=== PATIENT | male | born 1980 | race Caucasian/White ===

== ENCOUNTER 2016-04-24 13:40 | Outpatient (CLI) | payer BC ==
[~2016-04-24] VITALS: Ht 182.9 cm; Wt 111.4 kg
[~2016-04-24 13:40] MED LIST: ACIDOPHILUS PO; ALLEGRA ALLERGY60 MG PO; ALLEGRA30 MG PO; ASACOL HD800 MG PO; ASACOL PO; ASACOL400 MG PO; CANASA1000 MG RC; CANASA500 MG RC; DILAUDID 4MG TAB4 MG PO; DUO-KAPS1 CAP PO; FLAGYL500 MG PO; HYDROCORTI100 MG/60 RC; HYDROCORTISONE SUPP; IMODIUM 2MG CAPS2 MG PO; IMURAN 50MG TAB50 MG PO; IMURAN100 MG IV; LEVAQUIN 250MG250 MG PO; LEVSIN0.125 M1 PO; LIALDA 1.2 GM1.2 GM PO; METRONIDAZOLE; NORCO 325 MG-51 TAB PO; PREDNISONE20 MG; PREDNISONE20 MG PO; PROBIOTIC FORMU1 CAP PO; ROWASA ENEMA60 ML RC; SIMETHICONE PO; TYLENOL EXTRA500 M1 PO; ZANTAC 150MG T150 MG PO; ZOFRAN 4MG T4 MG/TAB PO; ZOLOFT 100MG100 MG PO; ZOLOFT 25MG25 MG PO; [UNRECOGNIZED DRUG - OTHER] RC
[2016-04-24 15:33] LABS: ALBUMIN 4.1 gm/dL (3.5-5.0); BILIRUBIN,DIRECT 0.4 mg/dL (0.0-0.4); BILIRUBIN,TOTAL 0.5 mg/dL (0.0-1.0); TOTAL PROTEIN 7.6 gm/dL (6.4-8.2)
[2016-04-24 15:51] LABS: HEMOGLOBIN 13.3 g/dl (13.5-18.0); MEAN CELL VOLUME 86 fl (80.0-100.0); MEAN CORPUSCULAR HEMOGLOBIN 29 pg (27.0-31.0); MEAN CORPUSCULAR HGB CONC 34 g/dl (33.0-37.0); MEAN PLATELET VOLUME 9.6 fl (7.4-10.4); PLATELET COUNT 198 K/mm3 (130-400); RED BLOOD COUNT 4.55 M/mm3 (4.20-5.60); REDCELL DISTRIBUTION WIDTH-CV 13.3 % (11.5-14.5); WHITE BLOOD COUNT 4.8 K/mm3 (4.8-10.8)
[2016-04-24 16:15] VITALS: BP 119/72; PULSE 81; TEMP 97.8
[2016-04-24 16:25] VITALS: BP 119/72; PULSE 81; TEMP 97.8
[2016-04-24 16:55] VITALS: BP 120/71; PULSE 88
[2016-04-24 17:25] VITALS: BP 130/75; PULSE 89
[2016-04-24 17:55] VITALS: BP 134/74; PULSE 90
[2016-04-24 18:25] VITALS: BP 133/80; PULSE 90
== END 2016-04-24 18:30 | disposition home or self-care (01) ==
LOC: EUO 13:40
PROVIDERS: Internal Medicine Gastroenterology
DX: K51.80 Other ulcerative colitis without complications (principal)
CPT/HCPCS: J1200; J1745; J7050

== ENCOUNTER → 2016-06-27 | Outpatient (CLI) | payer BC ==
[~2016-06-27] VITALS: Ht 182.9 cm; Wt 111.3 kg
[~2016-06-27] MED LIST changes: +ALLEGRA 180MG180 MG PO
[2016-06-27 14:26] LABS: HEMATOCRIT 39.1 % (42.0-52.0); HEMOGLOBIN 13.3 g/dl (13.5-18.0); MEAN CELL VOLUME 87 fl (80.0-100.0); MEAN CORPUSCULAR HEMOGLOBIN 30 pg (27.0-31.0); MEAN CORPUSCULAR HGB CONC 34 g/dl (33.0-37.0); MEAN PLATELET VOLUME 9.9 fl (7.4-10.4); PLATELET COUNT 146 K/mm3 (130-400); RED BLOOD COUNT 4.49 M/mm3 (4.20-5.60)
[2016-06-27 14:35] LABS: BILIRUBIN,DIRECT 0.6 mg/dL (0.0-0.4); BILIRUBIN,TOTAL 0.7 mg/dL (0.0-1.0); TOTAL PROTEIN 7.4 gm/dL (6.4-8.2)
[2016-06-27 14:43] LABS: ALBUMIN 4.2 gm/dL (3.5-5.0)
[2016-06-27 15:13] VITALS: BP 129/76; PULSE 90; TEMP 98.4
[2016-06-27 15:45] VITALS: BP 113/62; PULSE 74; TEMP 98.2
[2016-06-27 16:30] VITALS: BP 117/71; PULSE 90; TEMP 97.6
[2016-06-27 17:00] VITALS: BP 107/76; PULSE 81; TEMP 98.4
[2016-06-27 17:23] VITALS: BP 115/70; PULSE 80; TEMP 98
== END ==
LOC: EUO 06-26 14:00
PROVIDERS: Internal Medicine Gastroenterology
DX: K51.80 Other ulcerative colitis without complications (principal)
CPT/HCPCS: J1200; J7050

== ENCOUNTER 2016-08-23 13:57 | Outpatient (CLI) | payer BC ==
[~2016-08-23] VITALS: Ht 182.9 cm; Wt 111.5 kg
[~2016-08-23 13:57] MED LIST changes: -ALLEGRA 180MG180 MG PO
[2016-08-23] MEDS ORDERED: ALLEGRA 180MG180 MG PO (14:34)
[2016-08-23 14:39] LABS: HEMATOCRIT 38.3 % (42.0-52.0); HEMOGLOBIN 13.4 g/dl (13.5-18.0); MEAN CELL VOLUME 85 fl (80.0-100.0); MEAN CORPUSCULAR HEMOGLOBIN 30 pg (27.0-31.0); MEAN CORPUSCULAR HGB CONC 35 g/dl (33.0-37.0); MEAN PLATELET VOLUME 9.7 fl (7.4-10.4); PLATELET COUNT 166 K/mm3 (130-400); RED BLOOD COUNT 4.52 M/mm3 (4.20-5.60); REDCELL DISTRIBUTION WIDTH-CV 13.4 % (11.5-14.5); WHITE BLOOD COUNT 4.4 K/mm3 (4.8-10.8)
[2016-08-23 14:43] LABS: ALBUMIN 3.8 gm/dL (3.5-5.0); BILIRUBIN,DIRECT 0.6 mg/dL (0.0-0.4); BILIRUBIN,TOTAL 0.7 mg/dL (0.0-1.0); TOTAL PROTEIN 7.2 gm/dL (6.4-8.2)
[2016-08-23 15:40] VITALS: BP 127/75; PULSE 96; TEMP 98.1
[2016-08-23 16:10] VITALS: BP 118/67; PULSE 96; TEMP 98.7
[2016-08-23 16:45] VITALS: BP 116/72; PULSE 90; TEMP 98.4
[2016-08-23 17:15] VITALS: BP 120/70; PULSE 93; TEMP 98.4
[2016-08-23 17:43] VITALS: BP 124/63; PULSE 89; TEMP 98
== END 2016-08-23 17:43 | disposition home or self-care (01) ==
LOC: EUO 13:57
PROVIDERS: Internal Medicine Gastroenterology
DX: K51.80 Other ulcerative colitis without complications (principal); Z79.899 Other long term (current) drug therapy
CPT/HCPCS: J1200; J1745; J7050

== ENCOUNTER 2016-10-22 14:14 | Outpatient (CLI) | payer BC ==
[~2016-10-22] VITALS: Ht 182.9 cm; Wt 112.0 kg
[~2016-10-22 14:14] MED LIST changes: +ALLEGRA 180MG180 MG PO
[2016-10-22 15:11] LABS: HEMATOCRIT 41.1 % (42.0-52.0); HEMOGLOBIN 14.1 g/dl (13.5-18.0); MEAN CELL VOLUME 86 fl (80.0-100.0); MEAN CORPUSCULAR HEMOGLOBIN 29 pg (27.0-31.0); MEAN CORPUSCULAR HGB CONC 34 g/dl (33.0-37.0); MEAN PLATELET VOLUME 9.8 fl (7.4-10.4); PLATELET COUNT 178 K/mm3 (130-400); REDCELL DISTRIBUTION WIDTH-CV 13.5 % (11.5-14.5); WHITE BLOOD COUNT 5.3 K/mm3 (4.8-10.8)
[2016-10-22 15:23] LABS: ALBUMIN 4.4 gm/dL (3.5-5.0); BILIRUBIN,TOTAL 0.6 mg/dL (0.0-1.0); TOTAL PROTEIN 7.8 gm/dL (6.4-8.2)
[2016-10-22 15:36] LABS: BILIRUBIN,DIRECT 0.5 mg/dL (0.0-0.4)
[2016-10-22 16:11] VITALS: BP 128/74; PULSE 92; TEMP 98.8
[2016-10-22 16:40] VITALS: BP 116/63; PULSE 88; TEMP 97.8
[2016-10-22 17:16] VITALS: BP 126/69; PULSE 97; TEMP 98.5
[2016-10-22 17:50] VITALS: BP 123/64; PULSE 91; TEMP 98.3
[2016-10-22 18:21] VITALS: BP 113/60; PULSE 87; TEMP 98.6
== END 2016-10-22 18:21 | disposition critical access hospital, planned readmission (94) ==
LOC: EUO 14:14
PROVIDERS: Internal Medicine Gastroenterology
DX: K51.80 Other ulcerative colitis without complications (principal); Z79.899 Other long term (current) drug therapy
CPT/HCPCS: J1200; J7050; Q5102-ZB

== ENCOUNTER 2016-12-19 14:07 | Outpatient (CLI) | payer BC ==
[~2016-12-19] VITALS: Ht 182.9 cm; Wt 109.0 kg
[2016-12-19 14:45] LABS: HEMATOCRIT 42.7 % (42.0-52.0); HEMOGLOBIN 14.2 g/dl (13.5-18.0); MEAN CELL VOLUME 89 fl (80.0-100.0); MEAN CORPUSCULAR HEMOGLOBIN 30 pg (27.0-31.0); MEAN CORPUSCULAR HGB CONC 33 g/dl (33.0-37.0); MEAN PLATELET VOLUME 9.4 fl (7.4-10.4); PLATELET COUNT 172 K/mm3 (130-400); REDCELL DISTRIBUTION WIDTH-CV 13.7 % (11.5-14.5); WHITE BLOOD COUNT 5.7 K/mm3 (4.8-10.8)
[2016-12-19 15:35] VITALS: BP 130/71; PULSE 68; TEMP 98.5
[2016-12-19 16:05] VITALS: BP 131/75; PULSE 75; TEMP 98.4
[2016-12-19 16:35] VITALS: BP 130/65; PULSE 74; TEMP 98.4
[2016-12-19 17:00] VITALS: BP 131/74; PULSE 88; TEMP 98.5
[2016-12-19 17:39] VITALS: BP 127/69; PULSE 88; TEMP 98.4
== END 2016-12-19 17:39 | disposition home or self-care (01) ==
LOC: EUO 14:07
PROVIDERS: Internal Medicine Gastroenterology
DX: K51.80 Other ulcerative colitis without complications (principal); Z79.899 Other long term (current) drug therapy
CPT/HCPCS: J1200; J1745; J7050

== ENCOUNTER 2017-02-14 14:06 | Outpatient (CLI) | payer BC ==
[~2017-02-14] VITALS: Ht 182.9 cm; Wt 108.0 kg
[2017-02-14 14:51] LABS: HEMATOCRIT 46.4 % (42.0-52.0); HEMOGLOBIN 15.9 g/dl (13.5-18.0); MEAN CELL VOLUME 85 fl (80.0-100.0); MEAN CORPUSCULAR HEMOGLOBIN 29 pg (27.0-31.0); MEAN CORPUSCULAR HGB CONC 34 g/dl (33.0-37.0); MEAN PLATELET VOLUME 10.2 fl (7.4-10.4); PLATELET COUNT 158 K/mm3 (130-400); RED BLOOD COUNT 5.46 M/mm3 (4.20-5.60); WHITE BLOOD COUNT 6.1 K/mm3 (4.8-10.8)
[2017-02-14 15:01] VITALS: BP 120/64; PULSE 92; TEMP 98
[2017-02-14 15:05] LABS: ALBUMIN 4.8 gm/dL (3.5-5.0); TOTAL PROTEIN 8.4 gm/dL (6.4-8.2)
[2017-02-14 15:32] LABS: BILIRUBIN UNCONJUGATED 0.2 mg/dL (0.0-1.1); BILIRUBIN,DIRECT 0.4 mg/dL (0.0-0.4); BILIRUBIN,TOTAL 0.6 mg/dL (0.0-1.0)
[2017-02-14 16:00] VITALS: BP 119/69; PULSE 77; TEMP 98.4
[2017-02-14 16:30] VITALS: BP 120/65; PULSE 82; TEMP 98.5
[2017-02-14 17:00] VITALS: BP 123/73; PULSE 94
[2017-02-14 17:30] VITALS: BP 129/75; PULSE 90; TEMP 98.6
[2017-02-14 18:10] VITALS: BP 122/70; PULSE 89; TEMP 98.6
== END 2017-02-14 18:28 | disposition home or self-care (01) ==
LOC: EUO 14:06
PROVIDERS: Internal Medicine Gastroenterology
DX: K51.80 Other ulcerative colitis without complications (principal); Z79.899 Other long term (current) drug therapy
CPT/HCPCS: J1200; J1745; J7050

== ENCOUNTER 2017-04-11 13:52 | Outpatient (CLI) | payer BC ==
[~2017-04-11] VITALS: Ht 182.9 cm; Wt 108.4 kg
[2017-04-11 14:28] LABS: HEMOGLOBIN 15.6 g/dl (13.5-18.0); MEAN CELL VOLUME 85 fl (80.0-100.0); MEAN CORPUSCULAR HEMOGLOBIN 29 pg (27.0-31.0); MEAN CORPUSCULAR HGB CONC 34 g/dl (33.0-37.0); MEAN PLATELET VOLUME 9.7 fl (7.4-10.4); PLATELET COUNT 192 K/mm3 (130-400); RED BLOOD COUNT 5.42 M/mm3 (4.20-5.60)
[2017-04-11 14:36] LABS: ALBUMIN 4.4 gm/dL (3.5-5.0); BILIRUBIN UNCONJUGATED 0.2 mg/dL (0.0-1.1); BILIRUBIN,DIRECT 0.2 mg/dL (0.0-0.4); BILIRUBIN,TOTAL 0.5 mg/dL (0.0-1.0); TOTAL PROTEIN 8.2 gm/dL (6.4-8.2)
[2017-04-11 16:00] VITALS: BP 128/74; PULSE 82; TEMP 98
[2017-04-11 16:30] VITALS: BP 121/69; PULSE 77; TEMP 98.2
[2017-04-11 17:00] VITALS: BP 133/64; PULSE 85; TEMP 98
[2017-04-11 17:30] VITALS: BP 109/61; PULSE 94; TEMP 98
[2017-04-11 18:00] VITALS: BP 123/76; PULSE 87; TEMP 98.2
[2017-04-11 18:25] VITALS: BP 122/60; PULSE 76; TEMP 98.4
== END 2017-04-11 18:46 | disposition home or self-care (01) ==
LOC: EUO 13:52
PROVIDERS: Internal Medicine Gastroenterology
DX: K51.80 Other ulcerative colitis without complications (principal); Z79.899 Other long term (current) drug therapy
CPT/HCPCS: J1200; J7050

== ENCOUNTER 2017-06-11 14:38 | Outpatient (CLI) | payer BC ==
[~2017-06-11] VITALS: Ht 182.9 cm; Wt 110.7 kg
[2017-06-11 15:08] LABS: HEMATOCRIT 45.4 % (42.0-52.0); HEMOGLOBIN 15.9 g/dl (13.5-18.0); MEAN CELL VOLUME 85 fl (80.0-100.0); MEAN CORPUSCULAR HEMOGLOBIN 30 pg (27.0-31.0); MEAN CORPUSCULAR HGB CONC 35 g/dl (33.0-37.0); MEAN PLATELET VOLUME 9.5 fl (7.4-10.4); PLATELET COUNT 203 K/mm3 (130-400); RED BLOOD COUNT 5.35 M/mm3 (4.20-5.60); REDCELL DISTRIBUTION WIDTH-CV 14.1 % (11.5-14.5)
[2017-06-11 15:12] LABS: ALBUMIN 4.5 gm/dL (3.5-5.0); BILIRUBIN UNCONJUGATED 0.2 mg/dL (0.0-1.1); BILIRUBIN,DIRECT 0.2 mg/dL (0.0-0.4); BILIRUBIN,TOTAL 0.5 mg/dL (0.0-1.0); TOTAL PROTEIN 8.8 gm/dL (6.4-8.2)
[2017-06-11 16:35] VITALS: BP 123/76; PULSE 91; TEMP 98.6
[2017-06-11 17:00] VITALS: BP 106/72; PULSE 96; TEMP 98.1
[2017-06-11 17:30] VITALS: BP 123/76; PULSE 101; TEMP 98.3
[2017-06-11 18:00] VITALS: BP 104/75; PULSE 92; TEMP 98.3
[2017-06-11 18:25] VITALS: BP 111/63; PULSE 76
[2017-06-11 18:38] VITALS: BP 111/68; PULSE 76; TEMP 97.8
== END 2017-06-11 18:41 | disposition home or self-care (01) ==
LOC: EUO 14:38
PROVIDERS: Internal Medicine Gastroenterology
DX: K51.80 Other ulcerative colitis without complications (principal); Z79.899 Other long term (current) drug therapy
CPT/HCPCS: J1200; J1745; J7050

== ENCOUNTER 2017-08-06 13:38 | Outpatient (CLI) | payer BC ==
[~2017-08-06] VITALS: Ht 182.9 cm; Wt 120.5 kg
[2017-08-06 14:00] VITALS: BP 130/88; PULSE 99; TEMP 97.9
[2017-08-06 14:06] LABS: HEMATOCRIT 41.2 % (42.0-52.0); HEMOGLOBIN 14.5 g/dl (13.5-18.0); MEAN CELL VOLUME 86 fl (80.0-100.0); MEAN CORPUSCULAR HEMOGLOBIN 30 pg (27.0-31.0); MEAN CORPUSCULAR HGB CONC 35 g/dl (33.0-37.0); MEAN PLATELET VOLUME 9.9 fl (7.4-10.4); PLATELET COUNT 191 K/mm3 (130-400); RED BLOOD COUNT 4.78 M/mm3 (4.20-5.60); REDCELL DISTRIBUTION WIDTH-CV 13.2 % (11.5-14.5)
== END 2017-08-06 15:00 | disposition home or self-care (01) ==
LOC: EUO 13:38
PROVIDERS: Internal Medicine Gastroenterology
DX: K51.80 Other ulcerative colitis without complications (principal); Z79.899 Other long term (current) drug therapy
CPT/HCPCS: J1200; J1745; J7050

== ENCOUNTER 2017-10-01 14:25 | Outpatient (CLI) | payer BC ==
[~2017-10-01] VITALS: Ht 182.9 cm; Wt 113.0 kg
[2017-10-01] MEDS ORDERED: ZYRTEC 10MG10 MG PO (14:57)
[2017-10-01 15:36] LABS: BASO % 0.4 % (0.0-2.0); EOS # 0.1 (0.0-0.7); GRAN # 3.3 (1.4-6.5); GRAN % 67.6 % (42.2-75.2); HEMATOCRIT 39.8 % (42.0-52.0); HEMOGLOBIN 13.8 g/dl (13.5-18.0); LYMPH % 20.7 % (20.0-51.0); MEAN CELL VOLUME 86 fl (80.0-100.0); MEAN CORPUSCULAR HEMOGLOBIN 30 pg (27.0-31.0); MEAN CORPUSCULAR HGB CONC 35 g/dl (33.0-37.0); MEAN PLATELET VOLUME 9.2 fl (7.4-10.4); MONO # 0.4 (0.1-0.6); MONO % 8.9 % (1.7-9.3); PLATELET COUNT 181 K/mm3 (130-400); RED BLOOD COUNT 4.62 M/mm3 (4.20-5.60); REDCELL DISTRIBUTION WIDTH-CV 13.1 % (11.5-14.5)
[2017-10-01 15:42] LABS: TOTAL PROTEIN 7.6 gm/dL (6.4-8.2)
[2017-10-01 15:49] LABS: BILIRUBIN UNCONJUGATED 0.1 mg/dL (0.0-1.1); BILIRUBIN,DIRECT 0.2 mg/dL (0.0-0.4); BILIRUBIN,TOTAL 0.3 mg/dL (0.0-1.0)
[2017-10-01 16:50] VITALS: BP 133/90; PULSE 95; TEMP 98.3
[2017-10-01 17:42] VITALS: BP 140/96; PULSE 87; TEMP 98.2
== END 2017-10-01 18:50 | disposition home or self-care (01) ==
LOC: EUO 14:25
PROVIDERS: Internal Medicine Gastroenterology
DX: K51.80 Other ulcerative colitis without complications (principal); Z79.899 Other long term (current) drug therapy
CPT/HCPCS: J1200; J7050

== ENCOUNTER 2017-11-26 14:14 | Outpatient (CLI) | payer BC ==
[~2017-11-26] VITALS: Ht 182.9 cm; Wt 112.4 kg
[~2017-11-26 14:14] MED LIST changes: +ZYRTEC 10MG10 MG PO
[2017-11-26 14:50] LABS: HEMATOCRIT 40.4 % (42.0-52.0); HEMOGLOBIN 13.9 g/dl (13.5-18.0); MEAN CELL VOLUME 85 fl (80.0-100.0); MEAN CORPUSCULAR HEMOGLOBIN 29 pg (27.0-31.0); MEAN CORPUSCULAR HGB CONC 34 g/dl (33.0-37.0); MEAN PLATELET VOLUME 10.1 fl (7.4-10.4); PLATELET COUNT 187 K/mm3 (130-400); RED BLOOD COUNT 4.77 M/mm3 (4.20-5.60)
[2017-11-26 16:00] VITALS: BP 127/77; PULSE 84; TEMP 98.4
[2017-11-26 16:15] VITALS: BP 125/69; PULSE 83; TEMP 99.3
[2017-11-26 16:44] VITALS: BP 120/79; PULSE 78
[2017-11-26 17:15] VITALS: BP 115/79; PULSE 85; TEMP 98.5
[2017-11-26 17:45] VITALS: BP 122/78; PULSE 87; TEMP 98.5
== END 2017-11-26 18:00 | disposition home or self-care (01) ==
LOC: EUO 14:14
PROVIDERS: Internal Medicine Gastroenterology
DX: K51.80 Other ulcerative colitis without complications (principal); Z79.899 Other long term (current) drug therapy
CPT/HCPCS: J1200; J1745; J7050

== ENCOUNTER 2018-03-19 14:04 | Outpatient (CLI) | payer BC ==
[~2018-03-19] VITALS: Ht 182.9 cm; Wt 114.5 kg
[2018-03-19 14:48] LABS: HEMOGLOBIN 14.7 g/dl (13.5-18.0); MEAN CELL VOLUME 84 fl (80.0-100.0); MEAN CORPUSCULAR HEMOGLOBIN 29 pg (27.0-31.0); MEAN CORPUSCULAR HGB CONC 35 g/dl (33.0-37.0); MEAN PLATELET VOLUME 11.3 fl (7.4-10.4); PLATELET COUNT 131 K/mm3 (130-400); RED BLOOD COUNT 5.03 M/mm3 (4.20-5.60); REDCELL DISTRIBUTION WIDTH-CV 13.2 % (11.5-14.5)
[2018-03-19 15:30] LABS: ALBUMIN 4.3 gm/dL (3.5-5.0); BILIRUBIN UNCONJUGATED 0.2 mg/dL (0.0-1.1); BILIRUBIN,DIRECT 0.2 mg/dL (0.0-0.4); BILIRUBIN,TOTAL 0.4 mg/dL (0.0-1.0); TOTAL PROTEIN 8.2 gm/dL (6.4-8.2)
[2018-03-19 15:55] VITALS: BP 134/85; PULSE 104; TEMP 98.8
[2018-03-19 16:25] VITALS: BP 143/89; PULSE 97; TEMP 98.8
[2018-03-19 17:25] VITALS: BP 148/89; PULSE 101; TEMP 98.8
[2018-03-19 17:46] VITALS: BP 150/89; PULSE 96; TEMP 98.8
--- NOTE | 2018-03-19 17:46 | NUR ---
INT discontinued intact. Next appointment made.
== END 2018-03-19 17:47 | disposition home or self-care (01) ==
LOC: EUO 14:04
PROVIDERS: Internal Medicine Gastroenterology
DX: K51.80 Other ulcerative colitis without complications (principal); Z79.899 Other long term (current) drug therapy
CPT/HCPCS: J1200; J7050; Q5103

== ENCOUNTER 2018-05-18 13:45 | Outpatient (CLI) | payer BC ==
[2018-05-18] VITALS (8 sets, daily range): BP systolic 99–135; BP diastolic 63–81; PULSE 67–113; TEMP 98.4–98.5
[~2018-05-18] VITALS: Ht 182.9 cm; Wt 114.0 kg
[2018-05-18] MEDS ORDERED: LIALDA 1.2 GM1.2 GM PO (14:18)
[2018-05-18 14:42] LABS: HEMOGLOBIN 14.1 g/dl (13.5-18.0); MEAN CELL VOLUME 84 fl (80.0-100.0); MEAN CORPUSCULAR HEMOGLOBIN 29 pg (27.0-31.0); MEAN CORPUSCULAR HGB CONC 34 g/dl (33.0-37.0); MEAN PLATELET VOLUME 10.2 fl (7.4-10.4); PLATELET COUNT 155 K/mm3 (130-400); REDCELL DISTRIBUTION WIDTH-CV 12.9 % (11.5-14.5)
== END 2018-05-18 18:51 | disposition home or self-care (01) ==
LOC: EUO 13:45
PROVIDERS: Internal Medicine Gastroenterology
DX: K51.80 Other ulcerative colitis without complications (principal); Z79.899 Other long term (current) drug therapy
CPT/HCPCS: J1200; J7050; Q5103

== ENCOUNTER 2018-07-13 13:48 | Outpatient (CLI) | payer BC ==
[~2018-07-13] VITALS: Ht 182.9 cm; Wt 113.3 kg
[2018-07-13 14:25] VITALS: BP 119/80; PULSE 89; TEMP 98.2
[2018-07-13 14:35] LABS: HEMATOCRIT 43.1 % (42.0-52.0); HEMOGLOBIN 14.7 g/dl (13.5-18.0); MEAN CELL VOLUME 84 fl (80.0-100.0); MEAN CORPUSCULAR HEMOGLOBIN 29 pg (27.0-31.0); MEAN CORPUSCULAR HGB CONC 34 g/dl (33.0-37.0); MEAN PLATELET VOLUME 9.8 fl (7.4-10.4); PLATELET COUNT 180 K/mm3 (130-400); RED BLOOD COUNT 5.12 M/mm3 (4.20-5.60); REDCELL DISTRIBUTION WIDTH-CV 13.5 % (11.5-14.5)
[2018-07-13 14:50] LABS: ALBUMIN 4.1 gm/dL (3.5-5.0); BILIRUBIN UNCONJUGATED 0.3 mg/dL (0.0-1.1); BILIRUBIN,DIRECT 0.1 mg/dL (0.0-0.4); BILIRUBIN,TOTAL 0.4 mg/dL (0.0-1.0); TOTAL PROTEIN 7.9 gm/dL (6.4-8.2)
[2018-07-13 15:45] VITALS: BP 131/80; PULSE 92; TEMP 98.7
[2018-07-13 16:15] VITALS: BP 137/77; PULSE 93; TEMP 98.7
[2018-07-13 16:45] VITALS: BP 121/79; PULSE 91; TEMP 98.7
[2018-07-13 17:15] VITALS: BP 119/72; PULSE 86; TEMP 98.7
[2018-07-13 17:45] VITALS: BP 124/75; PULSE 85; TEMP 98.7
== END 2018-07-13 17:55 | disposition home or self-care (01) ==
LOC: EUO 13:48
PROVIDERS: Internal Medicine Gastroenterology
DX: K51.80 Other ulcerative colitis without complications (principal); Z79.899 Other long term (current) drug therapy
CPT/HCPCS: J1200; J7050; Q5103

== ENCOUNTER 2018-09-07 13:23 | Outpatient (CLI) | payer BC ==
[~2018-09-07] VITALS: Ht 182.9 cm; Wt 112.8 kg
[2018-09-07 13:49] LABS: HEMATOCRIT 41.9 % (42.0-52.0); HEMOGLOBIN 14.1 g/dl (13.5-18.0); MEAN CELL VOLUME 85 fl (80.0-100.0); MEAN CORPUSCULAR HEMOGLOBIN 29 pg (27.0-31.0); MEAN CORPUSCULAR HGB CONC 34 g/dl (33.0-37.0); MEAN PLATELET VOLUME 9.7 fl (7.4-10.4); PLATELET COUNT 186 K/mm3 (130-400); RED BLOOD COUNT 4.93 M/mm3 (4.20-5.60); REDCELL DISTRIBUTION WIDTH-CV 13.6 % (11.5-14.5)
[2018-09-07 14:02] LABS: ALBUMIN 4.1 gm/dL (3.5-5.0); BILIRUBIN UNCONJUGATED 0.3 mg/dL (0.0-1.1); BILIRUBIN,DIRECT 0.1 mg/dL (0.0-0.4); BILIRUBIN,TOTAL 0.4 mg/dL (0.0-1.0)
[2018-09-07 15:30] VITALS: BP 131/61; PULSE 88; TEMP 98.7
[2018-09-07 16:01] VITALS: BP 133/61; PULSE 88; TEMP 98.7
[2018-09-07 16:30] VITALS: BP 128/67; PULSE 76; TEMP 98.5
[2018-09-07 17:00] VITALS: BP 139/63; PULSE 77; TEMP 98.7
[2018-09-07 17:30] VITALS: BP 123/75; PULSE 78; TEMP 99
== END 2018-09-07 18:00 | disposition home or self-care (01) ==
LOC: EUO 13:23
PROVIDERS: Internal Medicine Gastroenterology
DX: K51.80 Other ulcerative colitis without complications (principal); Z79.899 Other long term (current) drug therapy
CPT/HCPCS: J1200; J7050

== ENCOUNTER 2018-11-02 13:18 | Outpatient (CLI) | payer BC ==
[~2018-11-02] VITALS: Ht 182.9 cm; Wt 112.0 kg
[2018-11-02 13:55] LABS: HEMATOCRIT 43.2 % (42.0-52.0); HEMOGLOBIN 14.7 g/dl (13.5-18.0); MEAN CELL VOLUME 85 fl (80.0-100.0); MEAN CORPUSCULAR HEMOGLOBIN 29 pg (27.0-31.0); MEAN CORPUSCULAR HGB CONC 34 g/dl (33.0-37.0); MEAN PLATELET VOLUME 10.2 fl (7.4-10.4); PLATELET COUNT 179 K/mm3 (130-400); RED BLOOD COUNT 5.08 M/mm3 (4.20-5.60); REDCELL DISTRIBUTION WIDTH-CV 13.1 % (11.5-14.5)
[2018-11-02 15:25] VITALS: BP 133/86; PULSE 94; TEMP 98.3
[2018-11-02 15:55] VITALS: BP 135/89; PULSE 91; TEMP 98.7
[2018-11-02 16:25] VITALS: BP 138/83; PULSE 102; TEMP 98
[2018-11-02 16:55] VITALS: BP 129/81; PULSE 93; TEMP 98.1
--- NOTE | 2018-11-02 16:59 | NUR ---
Report to Zaida Hunt RN who assumed care at this time.
[2018-11-02 17:30] VITALS: BP 125/76; PULSE 91; TEMP 99.3
== END 2018-11-02 17:34 | disposition home or self-care (01) ==
LOC: EUO 13:18
PROVIDERS: Internal Medicine Gastroenterology
DX: K51.80 Other ulcerative colitis without complications (principal); Z79.899 Other long term (current) drug therapy
CPT/HCPCS: J1200; J1745; J7050

== ENCOUNTER 2018-12-31 13:52 | Outpatient (CLI) | payer BC ==
[~2018-12-31] VITALS: Ht 182.9 cm; Wt 111.9 kg
[2018-12-31 14:48] LABS: ALBUMIN 4.2 gm/dL (3.5-5.0); BILIRUBIN UNCONJUGATED 0.3 mg/dL (0.0-1.1); BILIRUBIN,TOTAL 0.3 mg/dL (0.0-1.0); TOTAL PROTEIN 7.9 gm/dL (6.4-8.2)
[2018-12-31 14:55] LABS: HEMOGLOBIN 14.4 g/dl (13.5-18.0); MEAN CELL VOLUME 84 fl (80.0-100.0); MEAN CORPUSCULAR HEMOGLOBIN 29 pg (27.0-31.0); MEAN CORPUSCULAR HGB CONC 34 g/dl (33.0-37.0); MEAN PLATELET VOLUME 10.5 fl (7.4-10.4); PLATELET COUNT 186 K/mm3 (130-400); RED BLOOD COUNT 5.02 M/mm3 (4.20-5.60); REDCELL DISTRIBUTION WIDTH-CV 13.5 % (11.5-14.5)
[2018-12-31 16:30] VITALS: BP 137/76; PULSE 89; TEMP 98.5
[2018-12-31 17:00] VITALS: BP 112/77; PULSE 74; TEMP 98.4
[2018-12-31 17:30] VITALS: BP 114/66; PULSE 72; TEMP 99.5
[2018-12-31 18:10] VITALS: BP 129/85; PULSE 78; TEMP 98
== END 2018-12-31 19:12 | disposition home or self-care (01) ==
LOC: EUO 13:52
PROVIDERS: Internal Medicine Gastroenterology
DX: K51.80 Other ulcerative colitis without complications (principal); Z79.899 Other long term (current) drug therapy
CPT/HCPCS: J1200; J1745; J7050

== ENCOUNTER 2019-02-25 13:56 | Outpatient (CLI) | payer BC ==
[~2019-02-25] VITALS: Ht 182.9 cm; Wt 111.5 kg
[2019-02-25 14:29] LABS: HEMATOCRIT 43.3 % (42.0-52.0); MEAN CELL VOLUME 83 fl (80.0-100.0); MEAN CORPUSCULAR HEMOGLOBIN 29 pg (27.0-31.0); MEAN CORPUSCULAR HGB CONC 35 g/dl (33.0-37.0); PLATELET COUNT 186 K/mm3 (130-400); REDCELL DISTRIBUTION WIDTH-CV 13.4 % (11.5-14.5)
[2019-02-25 14:40] LABS: ALBUMIN 4.4 gm/dL (3.5-5.0); BILIRUBIN UNCONJUGATED 0.3 mg/dL (0.0-1.1); BILIRUBIN,TOTAL 0.3 mg/dL (0.0-1.0); TOTAL PROTEIN 7.9 gm/dL (6.4-8.2)
[2019-02-25 15:55] VITALS: BP 111/68; PULSE 83; TEMP 98.1
[2019-02-25 16:25] VITALS: BP 122/65; PULSE 86
[2019-02-25 16:55] VITALS: BP 105/59; PULSE 92
[2019-02-25 17:25] VITALS: BP 107/68; PULSE 86; TEMP 98.9
[2019-02-25 18:05] VITALS: BP 109/62; PULSE 88; TEMP 98
== END 2019-02-25 18:05 | disposition home or self-care (01) ==
LOC: EUO 13:56
PROVIDERS: Internal Medicine Gastroenterology
DX: K51.80 Other ulcerative colitis without complications (principal); Z79.899 Other long term (current) drug therapy
CPT/HCPCS: J1200; J1745; J7050

== ENCOUNTER 2019-04-22 14:06 | Outpatient (CLI) | payer BC ==
[2019-04-22] VITALS (12 sets, daily range): BP systolic 98–147; BP diastolic 73–99; PULSE 115–127; TEMP 98.7–100.4
[~2019-04-22] VITALS: Ht 182.9 cm; Wt 112.7 kg
[2019-04-22 14:43] LABS: HEMATOCRIT 40.4 % (42.0-52.0); HEMOGLOBIN 13.6 g/dl (13.5-18.0); MEAN CELL VOLUME 85 fl (80.0-100.0); MEAN CORPUSCULAR HEMOGLOBIN 29 pg (27.0-31.0); MEAN CORPUSCULAR HGB CONC 34 g/dl (33.0-37.0); MEAN PLATELET VOLUME 10.7 fl (7.4-10.4); PLATELET COUNT 171 K/mm3 (130-400); RED BLOOD COUNT 4.74 M/mm3 (4.20-5.60); REDCELL DISTRIBUTION WIDTH-CV 13.3 % (11.5-14.5)
--- NOTE | 2019-04-22 18:29 | NUR ---
PT is ambulatory to exit with no problem, he has done well during remicade infusion, with hr gradually trending down from 120's to 110's, temp did not exceed 101 during infusion, and pt is less flushed at time of departure than on arrival. pt scheduled for infusion in 8 weeks.
== END 2019-04-22 18:38 | disposition home or self-care (01) ==
LOC: EUO 14:06
PROVIDERS: Internal Medicine Gastroenterology
DX: K51.80 Other ulcerative colitis without complications (principal); Z79.899 Other long term (current) drug therapy
CPT/HCPCS: J1200; J1745; J7050

== ENCOUNTER 2019-06-06 21:06 | Emergency (ER) | payer BC ==
[~2019-06-06] VITALS: Ht 182.9 cm; Wt 106.8 kg
[~2019-06-06 21:06] MED LIST changes: +ALLEGRA ALLERG180 MG PO; +CEPHALEXIN500 M1 PO; +COREG 3.123.125 MG/T PO; +DEMADEX 20MG20 M1 PO; +LANOXIN 0.25M0.25 MG PO; +PROVENTIL0.09 MG/A1 IH; +REMICADE V100 MG/VIA IV; +TYLENOL 500MG500 MG PO; +ZESTRIL 5MG5 MG PO
[2019-06-06 21:15] VITALS: TEMP 98.6
[2019-06-06 21:59] LABS: BASO # 0.1 (0.0-0.2); BASO % 0.6 % (0.0-2.0); EOS # 0.2 (0.0-0.7); EOS % 2.1 % (0-4.0); GRAN # 6.9 (1.4-6.5); GRAN % 73.6 % (42.2-75.2); HEMATOCRIT 44.1 % (42.0-52.0); HEMOGLOBIN 14.3 g/dl (13.5-18.0); LYMPH # 1.6 (1.2-3.4); LYMPH % 16.6 % (20.0-51.0); MEAN CELL VOLUME 87 fl (80.0-100.0); MEAN CORPUSCULAR HEMOGLOBIN 28 pg (27.0-31.0); MEAN CORPUSCULAR HGB CONC 32 g/dl (33.0-37.0); MEAN PLATELET VOLUME 11.7 fl (7.4-10.4); MONO # 0.7 (0.1-0.6); MONO % 6.9 % (1.7-9.3); PLATELET COUNT 165 K/mm3 (130-400); RED BLOOD COUNT 5.08 M/mm3 (4.20-5.60); REDCELL DISTRIBUTION WIDTH-CV 14.2 % (11.5-14.5)
[2019-06-06 22:09] LABS: ALANINE AMINOTRANSFERASE 25 U/L (4-49); ALBUMIN 4.7 gm/dL (3.5-5.0); ALKALINE PHOSPHATASE 36 U/L (50-136); ANION GAP 12 mmol/L (7-16); AST,SGOT 27 U/L (15-37); BILIRUBIN,TOTAL 0.6 mg/dL (0.0-1.0); BLOOD UREA NITROGEN 18 mg/dL (9-20); CALCIUM 9.4 mg/dL (8.4-10.2); CARBON DIOXIDE 28 mmol/L (22-30); CHLORIDE 103 mmol/L (98-107); CREATININE, serum 1.01 (0.66-1.25); GLUCOSE 152 mg/dL (74-106); POTASSIUM 3.8 mmol/L (3.4-5.0); SODIUM 143 mmol/L (137-145); TOTAL PROTEIN 8.4 gm/dL (6.4-8.2)
[2019-06-06 22:20] LABS: TROPONIN-I < 0.012 ng/mL (0.000-0.035)
[2019-06-06 23:26] VITALS: BP 105/87; PULSE 107
== END 2019-06-06 23:26 | disposition home or self-care (01) ==
LOC: COL.ER 21:06
PROVIDERS: Physician Assistant
DX: R41.0 Disorientation, unspecified (principal); I50.9 Heart failure, unspecified; I42.9 Cardiomyopathy, unspecified; Z85.71 Personal history of Hodgkin lymphoma
CPT/HCPCS: J7030

== ENCOUNTER 2019-08-17 13:59 | Outpatient (CLI) | payer BC ==
[~2019-08-17] VITALS: Ht 182.9 cm; Wt 104.4 kg
[~2019-08-17 13:59] MED LIST changes: +ALDACTONE 25MG25 M1 PO; +K-TAB20 PO; +ZESTRIL2.5 MG PO
[2019-08-17 14:44] LABS: HEMATOCRIT 40.1 % (42.0-52.0); HEMOGLOBIN 13.6 g/dl (13.5-18.0); MEAN CELL VOLUME 82 fl (80.0-100.0); MEAN CORPUSCULAR HEMOGLOBIN 28 pg (27.0-31.0); MEAN CORPUSCULAR HGB CONC 34 g/dl (33.0-37.0); MEAN PLATELET VOLUME 10.4 fl (7.4-10.4); PLATELET COUNT 178 K/mm3 (130-400); RED BLOOD COUNT 4.88 M/mm3 (4.20-5.60); REDCELL DISTRIBUTION WIDTH-CV 14.6 % (11.5-14.5)
[2019-08-17 16:18] VITALS: BP 109/59; PULSE 62; TEMP 98.4
[2019-08-17 16:30] VITALS: BP 115/62; PULSE 99
[2019-08-17 17:00] VITALS: BP 104/55; PULSE 72
[2019-08-17 17:30] VITALS: BP 124/52; PULSE 72
[2019-08-17 18:00] VITALS: BP 110/71; PULSE 68
[2019-08-17 18:20] VITALS: BP 104/55; PULSE 63
== END 2019-08-17 18:41 | disposition home or self-care (01) ==
LOC: EUO 13:59
PROVIDERS: Internal Medicine Gastroenterology
DX: K51.80 Other ulcerative colitis without complications (principal); Z79.899 Other long term (current) drug therapy
CPT/HCPCS: J1200; J1745; J7050

== ENCOUNTER 2019-09-06 12:59 | Outpatient (RCR) | payer BC ==
[~2019-09-06 12:59] MED LIST changes: -ZESTRIL2.5 MG PO
== END 2019-10-24 | disposition still patient (30) ==
LOC: COL.CR
DX: I50.21 Acute systolic (congestive) heart failure (principal)

== ENCOUNTER 2019-10-20 14:06 | Outpatient (CLI) | payer BC ==
[~2019-10-20] VITALS: Ht 182.9 cm; Wt 101.8 kg
[2019-10-20 14:54] LABS: HEMOGLOBIN 13.5 g/dl (13.5-18.0); MEAN CELL VOLUME 83 fl (80.0-100.0); MEAN CORPUSCULAR HEMOGLOBIN 28 pg (27.0-31.0); MEAN CORPUSCULAR HGB CONC 34 g/dl (33.0-37.0); MEAN PLATELET VOLUME 9.5 fl (7.4-10.4); PLATELET COUNT 199 K/mm3 (130-400); RED BLOOD COUNT 4.81 M/mm3 (4.20-5.60); REDCELL DISTRIBUTION WIDTH-CV 13.7 % (11.5-14.5)
[2019-10-20 15:30] VITALS: BP 127/75; PULSE 87; TEMP 98.7
[2019-10-20 16:02] LABS: ALBUMIN 4.2 gm/dL (3.5-5.0); BILIRUBIN UNCONJUGATED 0.2 mg/dL (0.0-1.1); BILIRUBIN,DIRECT 0.3 mg/dL (0.0-0.4); BILIRUBIN,TOTAL 0.4 mg/dL (0.0-1.0); TOTAL PROTEIN 7.9 gm/dL (6.4-8.2)
[2019-10-20 17:10] VITALS: BP 121/76; PULSE 68; TEMP 98.5
--- NOTE | 2019-10-20 17:40 | NUR ---
Pt tolerated Stelara infusion well. Pt remained stable without complaint, no adverse reactions observed. pt remained in unit 25 minutes after infusion with no problems. IV was dc'd, cath intact, dressing applied. Pt is amb to exit with steady gait.
== END 2019-10-20 18:05 | disposition home or self-care (01) ==
LOC: EUO 14:06
PROVIDERS: Internal Medicine Gastroenterology
DX: K51.80 Other ulcerative colitis without complications (principal)
CPT/HCPCS: J1745

== ENCOUNTER 2019-12-13 12:16 | Outpatient (RCR) | payer SELFPAY | END 2019-12-14 | disposition home or self-care (01) | LOC: COL.CR | DX: Z02.9 Encounter for administrative examinations, unspecified (principal) ==

== ENCOUNTER → 2020-03-24 | Outpatient (RCR) | payer SELFPAY ==
[~2020-03-24] MED LIST changes: +THE MEDICINE S200 M2 PO
== END | disposition home or self-care (01) ==
LOC: COL.CR
DX: Z02.89 Encounter for other administrative examinations (principal)

== ENCOUNTER 2020-04-07 11:50 | Outpatient (RCR) | payer SELFPAY | END 2020-06-25 | disposition home or self-care (01) | LOC: COL.CR | DX: Z02.89 Encounter for other administrative examinations (principal) ==

== ENCOUNTER 2020-10-10 08:43 | Day surgery (SDC) | payer BC ==
[~2020-10-10] VITALS: Ht 182.9 cm; Wt 103.3 kg
[2020-10-10] MEDS ORDERED: COREG 6.256.25 MG/TA PO (09:39)
[2020-10-10] MEDS ORDERED: ZYRTEC 10MG10 MG PO (09:40)
[2020-10-10] MEDS ORDERED: IMURAN 50MG TAB50 MG PO (09:41)
[2020-10-10] MEDS ORDERED: K-DUR20 MEQ PO (09:43)
[2020-10-10] MEDS ORDERED: STELARA130 MG/26 IV (09:44)
[2020-10-10] MEDS ORDERED: LIALDA 1.2 GM1.2 GM PO (09:46)
[2020-10-10] MEDS ORDERED: ROWASA ENEMA60 ML RC (10:04)
[2020-10-10 10:15] VITALS: BP 140/84; PULSE 67; TEMP 98
[2020-10-10 10:30] VITALS: BP 127/72; PULSE 67
[2020-10-10 10:32] VITALS: BP 132/91; PULSE 84; TEMP 98.2
[2020-10-10 10:45] VITALS: BP 129/72; PULSE 71
[2020-10-10 11:00] VITALS: BP 123/70; PULSE 62
--- NOTE | 2020-10-10 14:24 | NUR ---
PT RETURNED PER CART FROM THE ENDO PROCEDURE ROOM INTO BAY #3. LUNGS CLEAR, HRR AND PACED. BOWEL SOUNDS PRESENT AND ACTIVE. PT DENIES PAIN OR NAUSEA AND OR VOMITING. PT REQUESTS CHOCOLATE PUDDING AND OJ. , ISHAN IS AT BEDSIDE. WARM BLANKET PROVIDED FOR COMFORT. CALL LIGHT IN REACH. WILL CONT TO MONITOR PROGRESS.
--- NOTE | 2020-10-10 14:31 | NUR ---
PT TOLERATING FOOD AND FLUIDS WITHOUT DIFFICULTY. IVF WAS DC'D. PT AND TALKING. DENIES PAIN. CALL LIGHT IN REACH.
--- NOTE | 2020-10-10 14:43 | NUR ---
PT TOLERATING FOOD AND FLUIDS WITHOUT DIFFICULTY. IV DC'D AND TOLERATED WELL. DISMISSAL INSTRUCTIONS GIVEN, PT AND VOICE UNDERSTANDING. PT WAS TAKEN TO PATIENT ENTRANCE FOR DISMISSAL TO FAMILY CAR PER WC. , ISHAN WAS DRIVING.
== END 2020-10-10 11:20 | disposition home or self-care (01) ==
LOC: SDCO 08:43
DX: K51.911 Ulcerative colitis, unspecified with rectal bleeding (principal); I42.9 Cardiomyopathy, unspecified; I11.0 Hypertensive heart disease with heart failure; I82.409 Acute embolism and thrombosis of unspecified deep veins of unspecified lower extremity; I50.20 Unspecified systolic (congestive) heart failure; F41.9 Anxiety disorder, unspecified; Z85.71 Personal history of Hodgkin lymphoma; Z20.822 Contact with and (suspected) exposure to COVID-19; Z95.810 Presence of automatic (implantable) cardiac defibrillator; Z79.899 Other long term (current) drug therapy
CPT/HCPCS: J2704; J3010; J7120

== ENCOUNTER 2023-04-01 08:39 | Day surgery (SDC) | payer BC ==
[~2023-04-01] VITALS: Ht 182.9 cm; Wt 105.6 kg
[~2023-04-01 08:39] MED LIST changes: +COREG 6.256.25 MG/TA PO; +Glycopyrrolate 0.2 MG/ML 1 ML VIAL ONE; +K-DUR20 MEQ PO; +LR 1,000 ML IV SCH; +Lidocaine PF 2% (20 MG/ML) 5 ML VIAL ONE; +Ondansetron 4 MG/2 ML VIAL IV PRN; +STELARA130 MG/26 IV
[2023-04-01] MEDS ORDERED: STELARA90 MG/ML SQ (09:37)
[2023-04-01 10:15] VITALS: BP 107/73; PULSE 91; TEMP 99
[2023-04-01 10:30] VITALS: BP 119/72; PULSE 78
[2023-04-01 10:32] VITALS: BP 124/86; PULSE 89; TEMP 97.2
[2023-04-01 10:45] VITALS: BP 118/67; PULSE 78
--- NOTE | 2023-04-01 11:23 | NUR ---
[id number]: PT TO RECOVERY BAY 2 FROM ENDO S/P COLONOSCOPY WITH BX'S A&O, PLACED ON MONITOR, VSS ON RA RECEIVED REPORT AND ASSUMED CARE OF PT FROM AN MORSE AT BEDSIDE PROVIDED FOOD/FLUIDS, TOLERATING WELL MD IN TO SPEAK WITH PT/FAMILY POST-PROCEDURE PT HAS REMAINED A&O, NAD, VSS ON RA, TOLERATING PO, IS WITHOUT SIGNIFICANT COMPLAINT, WITH STEADY GAIT THRU OUT STAY IV D/C'D. D/C INSTRUCTIONS, ANY FOLLOW UP REVIEWED AND HANDED TO PT. ALL QUESTIONS AND CONCERNS ADDRESSED TO PT SATISFACTION. TAKEN TO EXIT VIA W/C WITH ALL BELONGINGS AND PAPERWORK IN HAND, ASSISTED INTO PASSENGER SEAT OF POV. TO DRIVE HOME.
== END 2023-04-01 10:50 | disposition home or self-care (01) ==
LOC: SDCO 08:39
DX: K51.00 Ulcerative (chronic) pancolitis without complications (principal); K64.0 First degree hemorrhoids; K62.89 Other specified diseases of anus and rectum; Z86.010 Personal history of colon polyps; Z85.72 Personal history of non-Hodgkin lymphomas; Z95.810 Presence of automatic (implantable) cardiac defibrillator; Z85.71 Personal history of Hodgkin lymphoma
CPT/HCPCS: J2704; J7120